=== PATIENT | female | born 1985 | race Caucasian/White ===

== ENCOUNTER 2018-07-30 22:56 | Emergency (ER) | payer SELFPAY ==
[~2018-07-30] VITALS: Ht 157.5 cm; Wt 74.8 kg
--- NOTE | 2018-07-30 23:45 | NUR ---
PT GIVEN INFORMATION FOR [facility]
== END 2018-07-31 00:23 | disposition left against medical advice (07) ==
LOC: ER 22:56
DX: R69 Illness, unspecified (principal)